=== PATIENT | male | born 1980 | race Caucasian/White ===

== ENCOUNTER 2020-02-29 15:43 | Emergency (ER) | payer BC ==
[2020-02-29] MEDS ORDERED: Sodium Chloride 0.9% 10 ML Syringe FLUSH PRN (15:51)
[2020-02-29 16:44] LABS: PTT,PARTIAL THROMBOPLSTIN TIME 24.3 SEC (24.5-32.8)
[2020-02-29] MEDS: predniSONE 20 MG Tab PO ONE (16:49)
--- NOTE | 2020-02-29 16:49 | EDM.PDOC ---
ED HPI GENERAL MEDICAL PROBLEM - General Chief Complaint: General Stated Complaint: CP, SOB, exposure to sewer system supervisor gas Time Seen by Provider: 02/29/20 16:12 Source of Information: Reports: Patient History Limitations: Reports: No Limitations - History of Present Illness INITIAL COMMENTS - FREE TEXT/NARRATIVE: Patient comes to ER to be evaluated for anterior chest tightness/discomfort and SOB that developed as he was downstairs working on some sewer system supervisor back up issues in home. Exposed to sewer system supervisor gas because of this. Nothing in house is draining through to the city sewer system supervisor system and all sinks/toilets off-gassing. Has history of asthma. Tried to use son's inhaler and it was somewhat helpful. Chest discomfort, described as a crampy pain, was made worse with inspiration and also pushing on chest. Complaint of chest discomfort and SOB essentially resolve by time patient had physical exam in ER. Reports minimal problems with asthma and does not have own inhaler. PMHx significant for morbid obesity and early Type 2 DM. Quit smoking 4 years ago. Minimal ETOH. Some caffeine. No illicit drug use. ROS negative for any recent health changes/illnesses. Was feeling fine until sewer system supervisor issue started. No fevers/chills HEENT negative for ABDI/ear pain/congestion/sore throat/vision change Resp positive for SOB/anterior chest tightness. Negative for cough/sputum production. CV + for the anterior chest discomfort. No diaphoresis/palpitations/dizziness/ syncope/weight changes/edema GI negative for nausea/emesis/bowel changes/abdominal pain/blood in stool negative for acute changes/hematuria/UTI complaints. MS negative for any acute muscles aches/injuries/weakness/limb changes Neuro negative for numbness/tingling/one-sided weakness Skin negative for rash/acute changes Family history negative for mother or father with CAD/UT. He does recall several paternal uncles with UT. - Related Data Allergies Allergy/AdvReac Type Severity Reaction Status Date / Time No Known Allergies Allergy Verified 02/29/20 16:00 Home Meds: Home Meds Albuterol Sulfate [Albuterol Sulfate HFA] 2 appful IH Q4H PRN 06/04/14 [History] metFORMIN HCl [Metformin HCl ER] 1 tab PO DAILY 02/29/20 [History] Past Medical History Respiratory History: Reports: Asthma Endocrine/Metabolic History: Reports: Diabetes, Type II, Obesity/BMI 30+, Other (See Below) (morbidly obese) Social & Family History - Tobacco Use Smoking Status *Q: Former Smoker Tobacco Use Within Last Twelve Months: No Other Tobacco Use Within Last Twelve Months: No - Caffeine Use Caffeine Use: Reports: Soda - Alcohol Use Alcohol Use History: Yes Alcohol Use Frequency: Socially - Recreational Drug Use Recreational Drug Use: No Drug Use in Last 12 Months: No - Living Situation & Occupation Living situation: Reports: Occupation: Employed ED ROS GENERAL - Review of Systems Review Of Systems: Comprehensive ROS is negative, except as noted in HPI. ED EXAM, GENERAL - Physical Exam Exam: See Below Exam Limited By: No Limitations General Appearance: Alert, No Apparent Distress, Obese Eye Exam: Bilateral Eye: EOMI, PERRL Ears: Normal External Exam, Hearing Grossly Normal Nose: No: Nasal Deformity, Nasal Swelling, Nasal Drainage Throat/Mouth: Normal Lips, Normal Voice, No Airway Compromise Head: Atraumatic, Normocephalic Neck: Normal Inspection, Supple, Non-Tender, Full Range of Motion Respiratory/Chest: No Respiratory Distress, Lungs Clear, Normal Breath Sounds, No Accessory Muscle Use, Chest Non-Tender Cardiovascular: Regular Rate, Rhythm, No Edema, No Murmur GI/Abdominal: Normal Bowel Sounds, Soft, Non-Tender, Other (morbidly obese) (Male) Exam: Deferred Rectal (Males) Exam: Deferred Back Exam: No: Muscle Spasm Extremities: Non-Tender, No Pedal Edema, Normal Capillary Refill Neurological: Alert, Oriented, Normal Cognition, Normal Gait, No Motor/Sensory Deficits Psychiatric: Normal Affect, Normal Mood Skin Exam: Warm, Dry, Intact, Normal Color EKG INTERPRETATION EKG Date: 02/29/20 Time: 14:45 Rhythm: NSR Rate (Beats/Min): 85 [place]: Normal P-Wave: Present QRS: Normal ST-T: Other (No obvious ST changes suggestive of acute ischemia/STEMI) QT: Normal Comparison: No Change (very similar in appearance to EKG on file from 2013) Course - Orders/Labs/Meds Orders: Active Orders 24 hr Category Date Time Status Cardiac Monitoring [RC] . DIRECTED Care 02/29/20 15:51 Active EKG Documentation Completion [RC] ASDIRECTED Care 02/29/20 15:45 Active Peripheral IV Care [RC] . DIRECTED Care 02/29/20 15:51 Active Chest 1V Frontal [CR] Stat Exams 02/29/20 15:45 Taken CK W CKMB [CHEM] Stat Lab 02/29/20 15:52 Ordered CMP [COMPREHENSIVE METABOLIC PN,CMP] [CHEM] Stat Lab 02/29/20 15:52 Ordered CORONAVIRUS COVID-19 PCR PHL Stat Lab 02/29/20 15:51 Ordered DD [D-DIMER QUANTITATIVE] [COAG] Stat Lab 02/29/20 15:56 Ordered INR,PT,PROTHROMBIN TIME [COAG] Stat Lab 02/29/20 15:55 Ordered LACTIC ACID [CHEM] Stat Lab 02/29/20 15:56 Ordered MAGNESIUM [CHEM] Stat Lab 02/29/20 15:52 Ordered PRO B-TYPE NATRIUR PEPT,BNPPRO [CHEM] Stat Lab 02/29/20 15:52 Ordered PTT,PARTIAL THROMBOPLSTIN TIME [COAG] Stat Lab 02/29/20 15:55 Ordered TROPONIN I [CHEM] Stat Lab 02/29/20 15:52 Ordered TSH ULTRASENSITIVE [CHEM] Stat Lab 02/29/20 15:52 Ordered Sodium Chloride 0.9% [Saline Flush] Med 02/29/20 15:51 Active 10 ml FLUSH ASDIRECTED PRN Peripheral IV Insertion Adult [OM.PC] Routine Oth 02/29/20 15:51 Ordered Medication Orders Sodium Chloride (Saline Flush) 10 ml FLUSH ASDIRECTED PRN PRN Reason: Keep Vein Open Labs: Laboratory Tests 02/29/20 Range/Units 16:05 WBC 7.6 (4.0-10.2) K/uL RBC 4.89 (4.33-5.41) M/uL Hgb 13.6 (13.1-16.8) g/dL Hct 41.7 (39.0-49.0) % MCV 85.3 (84.0-98.0) fL MCH 27.8 L (28.2-33.3) pg MCHC 32.6 (31.7-36.0) g/dL RDW 14.3 H (11.2-14.1) % Plt Count 258 (150-350) K/uL Neut % (Auto) 73.4 (45.0-80.0) % Lymph % (Auto) 17.4 (10.0-50.0) % [place] % (Auto) 6.8 (2.0-14.0) % Eos % (Auto) 2.1 (0.0-5.0) % Baso % (Auto) 0.3 (0.0-2.0) % Neut # (Auto) 5.58 (1.40-7.00) K/uL Lymph # (Auto) 1.32 (0.50-3.50) K/uL [place] # (Auto) 0.52 (0.00-1.00) K/uL Eos # (Auto) 0.16 (0.00-0.50) K/uL Baso # (Auto) 0.02 (0.00-0.20) K/uL Meds: Medications Generic Name Dose Route Start Last Admin Trade Name Freq PRN Reason Stop Dose Admin Sodium Chloride 10 ml 02/29/20 15:51 Saline Flush FLUSH ASDIRECTED PRN Keep Vein Open - Radiology Interpretation Free Text/Narrative:: No focal consolidation/pneumothorax noted on chest film. - Re-Assessments/Exams Free Text/Narrative Re-Assessment/Exam: 02/29/20 16:59 No focal findings on exam. Patient noted that symptoms had resolved. Cardiac routines ordered. Covid testing added given SOB/chest discomfort complaint. No acute findings on EKG/Chest film Labs overall unremarkable, including CBC/Chem/Troponin/DDimer/ProBNP/TSH. Lactic acid 2.1, which is only 0.1 above normal. No evidence sepsis identified. Suspect reactive airway/asthma component causing patient's complaints due to gas exposure and heavy activity trying to clean up water in basement. Discussed admitting to observation/cardiac monitoring/serial troponin measurements for appropriate cardiac rule out work up and patient declined. He is willing to return tomorrow morning and have troponin and lactic acid redrawn for comparison. Departure - Departure Time of Disposition: 17:04 Disposition: Home, Self-Care 01 Condition: Good Clinical Impression: SOB (shortness of breath), Chest pain, atypical Exacerbation of reactive airway disease Qualifiers: Asthma severity: mild Asthma persistence: intermittent Qualified Code(s): J45.21 - Mild intermittent asthma with (acute) exacerbation - Discharge Information *PRESCRIPTION DRUG MONITORING PROGRAM REVIEWED*: Not Applicable *COPY OF PRESCRIPTION DRUG MONITORING REPORT IN PATIENT ALBERTO: Not Applicable Instructions: Shortness of Breath, Adult, [id number], Nonspecific Chest Pain , Adult, [id number] Referrals: Berenice Lieberman PA-C [Primary Care Provider] - Additional Instructions: Observe closely for changes/new symptoms. Follow up in ER over the weekend if you have sudden worsening problems. Covid test is pending and takes several days to perform. You should stay home and avoid other people while waiting for results. If you continue to have some intermittent issues with SOB but not severe, follow up with your clinic next week. Call hospital if you have questions over the weekend. Use inhaler 1-2 puffs every 4-6 hours as needed for shortness of breath. Take Prednisone 4 tabs daily for three days starting tomorrow. You had your first dose in the ER today. Return to ER/Hospital tomorrow morning for recheck of the labs. - My Orders Last 24 Hours: My Active Orders 02/29/20 15:45 EKG Documentation Completion [RC] ASDIRECTED Chest 1V Frontal [CR] Stat 02/29/20 15:51 Cardiac Monitoring [RC] . DIRECTED Peripheral IV Care [RC] . DIRECTED CORONAVIRUS COVID-19 PCR PHL Stat Sodium Chloride 0.9% [Saline Flush] 10 ml FLUSH ASDIRECTED PRN Peripheral IV Insertion Adult [OM.PC] Routine 02/29/20 15:52 CK W CKMB [CHEM] Stat CMP [COMPREHENSIVE METABOLIC PN,CMP] [CHEM] Stat MAGNESIUM [CHEM] Stat PRO B-TYPE NATRIUR PEPT,BNPPRO [CHEM] Stat TROPONIN I [CHEM] Stat TSH ULTRASENSITIVE [CHEM] Stat 02/29/20 15:55 INR,PT,PROTHROMBIN TIME [COAG] Stat PTT,PARTIAL THROMBOPLSTIN TIME [COAG] Stat 02/29/20 15:56 DD [D-DIMER QUANTITATIVE] [COAG] Stat LACTIC ACID [CHEM] Stat - Assessment/Plan Last 24 Hours: My Active Orders 02/29/20 15:45 EKG Documentation Completion [RC] ASDIRECTED Chest 1V Frontal [CR] Stat 02/29/20 15:51 Cardiac Monitoring [RC] . DIRECTED Peripheral IV Care [RC] . DIRECTED CORONAVIRUS COVID-19 PCR PHL Stat Sodium Chloride 0.9% [Saline Flush] 10 ml FLUSH ASDIRECTED PRN Peripheral IV Insertion Adult [OM.PC] Routine 02/29/20 15:52 CK W CKMB [CHEM] Stat CMP [COMPREHENSIVE METABOLIC PN,CMP] [CHEM] Stat MAGNESIUM [CHEM] Stat PRO B-TYPE NATRIUR PEPT,BNPPRO [CHEM] Stat TROPONIN I [CHEM] Stat TSH ULTRASENSITIVE [CHEM] Stat 02/29/20 15:55 INR,PT,PROTHROMBIN TIME [COAG] Stat PTT,PARTIAL THROMBOPLSTIN TIME [COAG] Stat 02/29/20 15:56 DD [D-DIMER QUANTITATIVE] [COAG] Stat LACTIC ACID [CHEM] Stat
[2020-02-29 16:50] LABS: CHLORIDE,CL 102 mmol/L (98-107); SODIUM,NA 137 mmol/L (136-145)
[2020-02-29 18:01] VITALS: BP 136/76; PULSE 86
== END 2020-02-29 17:18 | disposition home or self-care (01) ==
LOC: LL.ED 15:43
DX: J45.21 Mild intermittent asthma with (acute) exacerbation (principal); E11.9 Type 2 diabetes mellitus without complications; E66.9 Obesity, unspecified; Z87.891 Personal history of nicotine dependence; Z79.84 Long term (current) use of oral hypoglycemic drugs
CPT/HCPCS: 36415; 71045; 80053; 82550; 82553; 83605; 83735; 83880; 84443; 84484; 85025; 85379; 85610; 85730; 93005; 99285-25; J7512; U0002

== ENCOUNTER 2021-02-19 04:00 | Emergency (ER) | payer BC, OTHER ==
[2021-02-19 04:06] VITALS: PULSE 72
[2021-02-19] MEDS ORDERED: Ondansetron 4 MG/2 ML SDV IVPUSH ONE (04:46)
[2021-02-19] MEDS ORDERED: HYDROmorphone 1 MG/ML Syringe IVPUSH ONE (04:48)
[2021-02-19] MEDS ORDERED: Sodium Chloride 0.9% 1,000 ML IV SCH (05:00)
[2021-02-19 05:42] LABS: CHLORIDE,CL 104 mmol/L (98-107); SODIUM,NA 139 mmol/L (136-145)
[2021-02-19 05:48] VITALS: BP 144/89
[2021-02-19] MEDS ORDERED: Ketorolac 15 MG/ML SDV IVPUSH ONE (06:04)
--- NOTE | 2021-02-19 06:09 | EDM.PDOC ---
ED HPI GENERAL MEDICAL PROBLEM - General Chief Complaint: Flank Pain Stated Complaint: RIGHT FLANK PAIN Time Seen by Provider: 02/19/21 04:30 Source of Information: Reports: Patient History Limitations: Reports: No Limitations - History of Present Illness INITIAL COMMENTS - FREE TEXT/NARRATIVE: Pt. presents to ER with complaints of R sided back pain, urinary frequency, nausea, and vomiting. Pt. states that the symptoms woke him from sleep at about 12:30. he states that he vomited once. Denies any discoloration to his urine. Pt. states that he feels like he had to void but his bladder scan performed on admit was only 15 ml. Pt. does have a history of pancreatitis and elevated LFTs on unknown etiology. He was planning to undergo bariatric surgery and possible cholecystectomy (there was perviously some fluid around the gallbladder) and a liver biopsy to determine the etiology of this, but he has put off the surgery. Pt. denies any history of kidney stones. Denies any recent chest pain, shortness of breath, fever, chills, diarrhea, cough, or chest congestion. He does have a history of "borderline diabetes". 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 Right Flank Pain Score (Numeric/FACES): 7 - Related Data Allergies Allergy/AdvReac Type Severity Reaction Status Date / Time house dust Allergy Sneezing Verified 02/19/21 04:02 mold Allergy Chest Verified 02/19/21 04:02 Tightness pollen extracts Allergy Cough Verified 02/19/21 04:02 Home Meds: Home Meds Albuterol Sulfate [Albuterol Sulfate HFA] 2 appful IH Q4H PRN 06/04/14 [History] metFORMIN HCl [Metformin HCl ER] 1 tab PO DAILY 02/29/20 [History] Nitrofurantoin Monohyd/M-Cryst [Macrobid 100 mg Capsule] 100 mg PO BID #20 capsule 02/19/21 [Rx] traMADol [Ultram] 50 mg PO Q6H PRN #10 tab 02/19/21 [Rx] Past Medical History HEENT History: Reports: Allergic Rhinitis Respiratory History: Reports: Asthma Gastrointestinal History: Reports: Pancreatitis Musculoskeletal History: Reports: Back Pain, Chronic Endocrine/Metabolic History: Reports: Diabetes, Type II, Obesity/BMI 30+, Other (See Below) - Infectious Disease History Infectious Disease History: Reports: None - Past Surgical History HEENT Surgical History: Reports: None GI Surgical History: Reports: None Musculoskeletal Surgical History: Reports: None Social & Family History - Tobacco Use Tobacco Use Status *Q: Former Tobacco User Used Tobacco, but Quit: Yes Month/Year Tobacco Last Used: 2015 - Caffeine Use Caffeine Use: Reports: Coffee - Alcohol Use Days Per Week of Alcohol Use: 1 Number of Drinks Per Day: 6 Total Drinks Per Week: 6 Date of Last Drink: 02/15/21 - Recreational Drug Use Recreational Drug Use: No - Living Situation & Occupation Living situation: Reports: Occupation: Employed ED ROS GENERAL - Review of Systems Review Of Systems: See Below Constitutional: Reports: No Symptoms. Denies: Fever, Chills, Malaise, Weakness, Fatigue HEENT: Reports: No Symptoms Respiratory: Reports: No Symptoms Cardiovascular: Reports: No Symptoms Endocrine: Reports: No Symptoms GI/Abdominal: Reports: Abdominal Pain (R sided anterior/lateral ), Nausea, Vomiting. Denies: Black Stool, Bloody Stool, Constipation, Diarrhea, Distension, Hematemesis, Hematochezia, Melena, Mucous in Stool : Reports: Dysuria, Flank Pain, Frequency, Pain Musculoskeletal: Reports: No Symptoms Skin: Reports: No Symptoms Neurological: Reports: No Symptoms Psychiatric: Reports: No Symptoms Hematologic/Lymphatic: Reports: No Symptoms Immunologic: Reports: No Symptoms ED EXAM, GENERAL - Physical Exam Exam: See Below Exam Limited By: No Limitations General Appearance: Alert, WD/WN, No Apparent Distress Head: Atraumatic, Normocephalic Neck: Normal Inspection, Supple, Non-Tender, Full Range of Motion Respiratory/Chest: No Respiratory Distress, Lungs Clear, Normal Breath Sounds, No Accessory Muscle Use, Chest Non-Tender Cardiovascular: Normal Peripheral Pulses, Regular Rate, Rhythm, No Edema, No Gallop, No JVD, No Murmur Peripheral Pulses: 4+: Radial (L) GI/Abdominal: Soft, Tender (Tender to R side of abdomen/R flank, no increased discomfort with palpation.) (Male) Exam: Deferred Rectal (Males) Exam: Deferred Back Exam: CVA Tenderness (R) Psychiatric: Normal Affect, Normal Mood Skin Exam: Warm, Dry, Intact, Normal Color, No Rash Lymphatic: No Adenopathy Course - Vital Signs Last Recorded V/S: Last Vital Signs Temp 36.5 C 02/19/21 05:48 Pulse 72 02/19/21 05:48 Resp 16 02/19/21 05:48 BP 144/89 H 02/19/21 05:48 Pulse Ox 95 02/19/21 05:48 - Orders/Labs/Meds Orders: Active Orders 24 hr Category Date Time Status Abdomen Pelvis wo Cont [CT] Stat Exams 02/19/21 05:51 Taken CULTURE URINE [RM] Routine Lab 02/19/21 04:20 Received Sodium Chloride 0.9% [Normal Saline] 1,000 ml Med 02/19/21 05:00 Active IV ASDIRECTED Medication Orders Sodium Chloride (Normal Saline) 1,000 mls @ 250 mls/hr IV ASDIRECTED ELISE Last Admin: 02/19/21 04:56 Dose: 250 mls/hr Documented by: JOSE DANIEL Labs: Laboratory Tests 02/19/21 02/19/21 02/19/21 Range/Units 04:20 05:02 05:02 WBC 7.4 (4.0-10.2) K/uL RBC 4.97 (4.33-5.41) M/uL Hgb 13.8 (13.1-16.8) g/dL Hct 41.7 (39.0-49.0) % MCV 83.9 L (84.0-98.0) fL MCH 27.8 L (28.2-33.3) pg MCHC 33.1 (31.7-36.0) g/dL RDW 14.2 H (11.2-14.1) % Plt Count 292 (150-350) K/uL Neut % (Auto) 67.9 (45.0-80.0) % Lymph % (Auto) 22.8 (10.0-50.0) % [place] % (Auto) 6.3 (2.0-14.0) % Eos % (Auto) 2.6 (0.0-5.0) % Baso % (Auto) 0.4 (0.0-2.0) % Neut # (Auto) 5.00 (1.40-7.00) K/uL Lymph # (Auto) 1.68 (0.50-3.50) K/uL [place] # (Auto) 0.46 (0.00-1.00) K/uL Eos # (Auto) 0.19 (0.00-0.50) K/uL Baso # (Auto) 0.03 (0.00-0.20) K/uL PT 9.7 (9.5-12.0) SEC INR 1.0 Sodium (136-145) mmol/L Potassium (3.5-5.1) mmol/L Chloride (98-107) mmol/L Carbon Dioxide (21.0-32.0) mmol/L BUN (7-18) mg/dL Creatinine (0.51-1.17) mg/dL Est Cr Clr Drug Dosing Estimated GFR (MDRD) mL/min Glucose (70-99) mg/dL Calcium (8.5-10.1) mg/dL Total Bilirubin (0.2-1.0) mg/dL AST (15-37) U/L ALT (12-78) U/L Alkaline Phosphatase (46-116) IU/L C-Reactive Protein (<=0.9) mg/dL Total Protein (6.4-8.2) g/dL Albumin (3.4-5.0) g/dL Amylase (25-115) U/L Lipase (73-393) U/L Specimen Type Urincc Urine Color [place] Urine Appearance Cloudy Urine pH 5.5 (5.0-9.0) Ur Specific [place] >= 1.030 (1.005-1.030) Urine Protein 100 H (NEGATIVE) mg/dL Urine Glucose (UA) Negative (NEGATIVE) mg/dL Urine Ketones Negative (NEGATIVE) mg/dL Urine Occult Blood Large H (NEGATIVE) Urine Nitrite Negative (NEGATIVE) Urine Bilirubin Negative (NEGATIVE) Urine Urobilinogen 0.2 (0.2-1.0) E.U./dL Ur Leukocyte Esterase Negative (NEGATIVE) Urine RBC 75-100 H /HPF Urine WBC Not seen /HPF Ur Epithelial Cells Occasional /LPF Urine Bacteria Few (NONE TO FEW) /HPF 02/19/21 Range/Units 05:02 WBC (4.0-10.2) K/uL RBC (4.33-5.41) M/uL Hgb (13.1-16.8) g/dL Hct (39.0-49.0) % MCV (84.0-98.0) fL MCH (28.2-33.3) pg MCHC (31.7-36.0) g/dL RDW (11.2-14.1) % Plt Count (150-350) K/uL Neut % (Auto) (45.0-80.0) % Lymph % (Auto) (10.0-50.0) % [place] % (Auto) (2.0-14.0) % Eos % (Auto) (0.0-5.0) % Baso % (Auto) (0.0-2.0) % Neut # (Auto) (1.40-7.00) K/uL Lymph # (Auto) (0.50-3.50) K/uL [place] # (Auto) (0.00-1.00) K/uL Eos # (Auto) (0.00-0.50) K/uL Baso # (Auto) (0.00-0.20) K/uL PT (9.5-12.0) SEC INR Sodium 139 (136-145) mmol/L Potassium 4.2 (3.5-5.1) mmol/L Chloride 104 (98-107) mmol/L Carbon Dioxide 23.3 (21.0-32.0) mmol/L BUN 20 H (7-18) mg/dL Creatinine 0.91 (0.51-1.17) mg/dL Est Cr Clr Drug Dosing TNP Estimated GFR (MDRD) > 60 mL/min Glucose 151 H (70-99) mg/dL Calcium 8.2 L (8.5-10.1) mg/dL Total Bilirubin 0.5 (0.2-1.0) mg/dL AST 20 (15-37) U/L ALT 43 (12-78) U/L Alkaline Phosphatase 65 (46-116) IU/L C-Reactive Protein 1.1 H (<=0.9) mg/dL Total Protein 7.6 (6.4-8.2) g/dL Albumin 3.7 (3.4-5.0) g/dL Amylase 61 (25-115) U/L Lipase 87 (73-393) U/L Specimen Type Urine Color Urine Appearance Urine pH (5.0-9.0) Ur Specific [place] (1.005-1.030) Urine Protein (NEGATIVE) mg/dL Urine Glucose (UA) (NEGATIVE) mg/dL Urine Ketones (NEGATIVE) mg/dL Urine Occult Blood (NEGATIVE) Urine Nitrite (NEGATIVE) Urine Bilirubin (NEGATIVE) Urine Urobilinogen (0.2-1.0) E.U./dL Ur Leukocyte Esterase (NEGATIVE) Urine RBC /HPF Urine WBC /HPF Ur Epithelial Cells /LPF Urine Bacteria (NONE TO FEW) /HPF Meds: Medications Generic Name Dose Route Start Last Admin Trade Name Freq PRN Reason Stop Dose Admin Sodium Chloride 1,000 mls @ 250 mls/hr 02/19/21 05:00 02/19/21 04:56 Normal Saline IV 250 mls/hr ASDIRECTED ELISE Administration Discontinued Medications Generic Name Dose Route Start Last Admin Trade Name Freq PRN Reason Stop Dose Admin Ceftriaxone Sodium 2 gm 02/19/21 06:45 02/19/21 07:00 Ceftriaxone 2 Gm Vial IVPUSH 02/19/21 06:46 2 gm ONETIME ONE Administration Hydromorphone HCl 1 mg 02/19/21 04:48 02/19/21 04:53 Hydromorphone 1 Mg/Ml Syringe IVPUSH 02/19/21 04:49 1 mg ONETIME ONE Administration Ketorolac Tromethamine 15 mg 02/19/21 06:04 02/19/21 06:15 Ketorolac 15 Mg/Ml Sdv IVPUSH 02/19/21 06:05 15 mg ONETIME ONE Administration Ondansetron HCl 4 mg 02/19/21 04:46 02/19/21 04:53 Ondansetron 4 Mg/2 Ml Sdv IVPUSH 02/19/21 04:47 4 mg ONETIME ONE Administration Tamsulosin HCl 0.4 mg 02/19/21 06:44 02/19/21 07:00 Tamsulosin 0.4 Mg Cap.Er PO 02/19/21 06:45 0.4 mg ONETIME ONE Administration - Re-Assessments/Exams Free Text/Narrative Re-Assessment/Exam: 02/19/21 06:13 Pt. was given a liter of NS, zofran 4mg IV, dilaudid 1mg IV, and toradol 4 mg IV. Pt. reported significant improvement in discomfort. Pt. is currently being sent for CT scan for flank pain/hematuria. Departure - Departure Time of Disposition: 06:00 Disposition: Home, Self-Care 01 Clinical Impression: UTI, Urinary tract infectious disease, Asthma, Hyperglycemia Urolithiasis Qualifiers: Urinary calculus location: lower urinary tract Qualified Code(s): N21.9 - Calculus of lower urinary tract, unspecified - Discharge Information Prescriptions: Nitrofurantoin Monohyd/M-Cryst [Macrobid 100 mg Capsule] 100 mg PO BID #20 capsule traMADol [Ultram] 50 mg PO Q6H PRN #10 tab PRN Reason: Pain (Severe 7-10) Instructions: Kidney Stones, [id number], Urinary Tract Infection, Adult, [id number] Referrals: Berenice Lieberman PA-C [Primary Care Provider] - Forms: ED Department Discharge Additional Instructions: 1. Followup with your regular provider tomorrow as directed with recommended repeat CBC, basic metabolic panel, and lactic acid level. Bring these discharge instructions with you to that visit. 2. Tylenol 650 mg by mouth every 4 hours and/or OTC ibuprofen 2-3 tabs by mouth every 6 hours with food as directed./needed. You may stagger these medications for 48-72 hours only, which essentially means that you are receiving a pain medication about every 2 hours. Next dose of ibuprofen in 6 hours as needed secondary to medications given in the emergency room 3. [place] diet including encouragement of oral fluids such as sports drinks, etc. for 24-48 hours as directed. Advance to regular diet as tolerated thereafter. 4. Work excuse- See Form 5. Initiate your Flomax starting tomorrow morning with this medication to be discontinued after you have passed your stone. 6. Strain all urine and bring stone to your regular provider or this facility as directed for further stone analysis. 7. Work excuse- See Form 8. Use Ultram with discretion as discussed with nausea, sedation, confusion, dependency, etc. precautions with this medication. This medication should be used for extreme pain only and if the above Tylenol or ibuprofen are ineffective. 9. Immediately after this visit verify that your cellular telephone's voicemail has been activated and is empty. Also verify that your home telephone's answering machine is operating properly and has space to receive messages. Note that it is sometimes necessary for us to be able to contact you at a later date to discuss your medical care. 10. Please remember that we are ALWAYS here for you and want to answer any questions you may have. Feel free to call the hospital any time and we call you back MARYAM. Sepsis Event Note (ED) - Evaluation Sepsis Screening Result: No Definite Risk - Focused Exam Vital Signs: Vital Signs Temp Pulse Resp BP Pulse Ox 02/19/21 05:48 36.5 C 72 16 144/89 H 95 02/19/21 04:05 35.9 C L 72 14 146/81 H 96 - My Orders Last 24 Hours: My Active Orders 02/19/21 05:00 Sodium Chloride 0.9% [Normal Saline] 1,000 ml IV ASDIRECTED 02/19/21 05:51 Abdomen Pelvis wo Cont [CT] Stat - Assessment/Plan Last 24 Hours: My Active Orders 02/19/21 05:00 Sodium Chloride 0.9% [Normal Saline] 1,000 ml IV ASDIRECTED 02/19/21 05:51 Abdomen Pelvis wo Cont [CT] Stat Plan: Pt. care of this patient was assumed at [address] Valdivia. Please refer to his note regarding the final disposition of this patient.
[2021-02-19] MEDS ORDERED: Tamsulosin 0.4 MG Cap.ER PO ONE (06:44)
[2021-02-19] MEDS ORDERED: cefTRIAXone 2 GM Vial IVPUSH ONE (06:45)
--- NOTE | 2021-02-19 06:53 | EDM.PDOC ---
ED HPI GENERAL MEDICAL PROBLEM - General Chief Complaint: Flank Pain Stated Complaint: RIGHT FLANK PAIN Time Seen by Provider: 02/19/21 06:05 Source of Information: Reports: Patient History Limitations: Reports: No Limitations - History of Present Illness INITIAL COMMENTS - FREE TEXT/NARRATIVE: Pt. presents to ER with complaints of R sided back pain, urinary frequency, nausea, and vomiting. Pt. states that the symptoms woke him from sleep at about 12:30. he states that he vomited once. Denies any discoloration to his urine. Pt. states that he feels like he had to void but his bladder scan performed on admit was only 15 ml. Pt. does have a history of pancreatitis and elevated LFTs on unknown etiology. He was planning to undergo bariatric surgery and possible cholecystectomy (there was perviously some fluid around the gallbladder) and a liver biopsy to determine the etiology of this, but he has put off the surgery. Pt. denies any history of kidney stones. Denies any recent chest pain, shortness of breath, fever, chills, diarrhea, cough, or chest congestion. He does have a history of "borderline diabetes". Onset: Today Onset Date: 02/19/21 Location: Reports: Abdomen, Back Quality: Reports: Ache, Sharp Treatments [employer]: Reports: NSAIDS Right Flank Pain Score (Numeric/FACES): 7 - Related Data Allergies Allergy/AdvReac Type Severity Reaction Status Date / Time house dust Allergy Sneezing Verified 02/19/21 04:02 mold Allergy Chest Verified 02/19/21 04:02 Tightness pollen extracts Allergy Cough Verified 02/19/21 04:02 Home Meds: Home Meds Albuterol Sulfate [Albuterol Sulfate HFA] 2 appful IH Q4H PRN 06/04/14 [History] metFORMIN HCl [Metformin HCl ER] 1 tab PO DAILY 02/29/20 [History] Nitrofurantoin Monohyd/M-Cryst [Macrobid 100 mg Capsule] 100 mg PO BID #20 capsule 02/19/21 [Rx] traMADol [Ultram] 50 mg PO Q6H PRN #10 tab 02/19/21 [Rx] Past Medical History HEENT History: Reports: Allergic Rhinitis Respiratory History: Reports: Asthma Gastrointestinal History: Reports: Pancreatitis Musculoskeletal History: Reports: Back Pain, Chronic Endocrine/Metabolic History: Reports: Diabetes, Type II, Obesity/BMI 30+, Other (See Below) - Infectious Disease History Infectious Disease History: Reports: None - Past Surgical History HEENT Surgical History: Reports: None GI Surgical History: Reports: None Musculoskeletal Surgical History: Reports: None Social & Family History - Tobacco Use Tobacco Use Status *Q: Former Tobacco User Used Tobacco, but Quit: Yes Month/Year Tobacco Last Used: 2015 - Caffeine Use Caffeine Use: Reports: Coffee - Alcohol Use Days Per Week of Alcohol Use: 1 Number of Drinks Per Day: 6 Total Drinks Per Week: 6 Date of Last Drink: 02/15/21 - Recreational Drug Use Recreational Drug Use: No - Living Situation & Occupation Living situation: Reports: Occupation: Employed ED ROS GENERAL - Review of Systems Review Of Systems: Comprehensive ROS is negative, except as noted in HPI. ED EXAM, GENERAL - Physical Exam Exam: See Below Free Text/Narrative:: Pt. presents to ER with complaints of R sided back pain, urinary frequency, nausea, and vomiting. Pt. states that the symptoms woke him from sleep at about 12:30. he states that he vomited once. Denies any discoloration to his urine. Pt. states that he feels like he had to void but his bladder scan performed on admit was only 15 ml. Pt. does have a history of pancreatitis and elevated LFTs on unknown etiology. He was planning to undergo bariatric surgery and possible cholecystectomy (there was perviously some fluid around the gallbladder) and a liver biopsy to determine the etiology of this, but he has put off the surgery. Pt. denies any history of kidney stones. Denies any recent chest pain, shortness of breath, fever, chills, diarrhea, cough, or chest congestion. He does have a history of "borderline diabetes". Exam Limited By: No Limitations General Appearance: Alert, WD/WN, No Apparent Distress Head: Atraumatic, Normocephalic Neck: Normal Inspection, Supple, Non-Tender, Full Range of Motion Respiratory/Chest: No Respiratory Distress, Lungs Clear, Normal Breath Sounds, No Accessory Muscle Use, Chest Non-Tender Cardiovascular: Normal Peripheral Pulses, Regular Rate, Rhythm, No Edema, No Gallop, No JVD, No Murmur Peripheral Pulses: 4+: Radial (L) GI/Abdominal: Soft, Tender (Tender to R side of abdomen/R flank, no increased discomfort with palpation.) Back Exam: CVA Tenderness (R) Psychiatric: Normal Affect, Normal Mood Skin Exam: Warm, Dry, Intact, Normal Color, No Rash Lymphatic: No Adenopathy Course - Vital Signs Last Recorded V/S: Last Vital Signs Temp 36.5 C 02/19/21 05:48 Pulse 72 02/19/21 05:48 Resp 16 02/19/21 05:48 BP 144/89 H 02/19/21 05:48 Pulse Ox 95 02/19/21 05:48 Vital Signs - 24 hr 02/19/21 02/19/21 04:05 05:48 Temperature [ 35.9 C L 36.5 C Temporal] Pulse, 72 72 Peripheral [ Left Pulse Oximetry] Respiratory 14 16 Rate Blood Pressure 146/81 H 144/89 H [Left Upper Arm ] O2 Sat by Pulse 96 95 Oximetry - Orders/Labs/Meds Orders: Active Orders 24 hr Category Date Time Status Abdomen Pelvis wo Cont [CT] Stat Exams 02/19/21 05:51 Taken CULTURE URINE [RM] Routine Lab 02/19/21 04:20 Received Labs: Laboratory Tests 02/19/21 02/19/21 02/19/21 Range/Units 04:20 05:02 05:02 WBC 7.4 (4.0-10.2) K/uL RBC 4.97 (4.33-5.41) M/uL Hgb 13.8 (13.1-16.8) g/dL Hct 41.7 (39.0-49.0) % MCV 83.9 L (84.0-98.0) fL MCH 27.8 L (28.2-33.3) pg MCHC 33.1 (31.7-36.0) g/dL RDW 14.2 H (11.2-14.1) % Plt Count 292 (150-350) K/uL Neut % (Auto) 67.9 (45.0-80.0) % Lymph % (Auto) 22.8 (10.0-50.0) % Bru[place] % (Auto) 6.3 (2.0-14.0) % Eos % (Auto) 2.6 (0.0-5.0) % Baso % (Auto) 0.4 (0.0-2.0) % Neut # (Auto) 5.00 (1.40-7.00) K/uL Lymph # (Auto) 1.68 (0.50-3.50) K/uL Brule # (Auto) 0.46 (0.00-1.00) K/uL Eos # (Auto) 0.19 (0.00-0.50) K/uL Baso # (Auto) 0.03 (0.00-0.20) K/uL PT 9.7 (9.5-12.0) SEC INR 1.0 Sodium (136-145) mmol/L Potassium (3.5-5.1) mmol/L Chloride (98-107) mmol/L Carbon Dioxide (21.0-32.0) mmol/L BUN (7-18) mg/dL Creatinine (0.51-1.17) mg/dL Est Cr Clr Drug Dosing Estimated GFR (MDRD) mL/min Glucose (70-99) mg/dL Calcium (8.5-10.1) mg/dL Total Bilirubin (0.2-1.0) mg/dL AST (15-37) U/L ALT (12-78) U/L Alkaline Phosphatase (46-116) IU/L C-Reactive Protein (<=0.9) mg/dL Total Protein (6.4-8.2) g/dL Albumin (3.4-5.0) g/dL Amylase (25-115) U/L Lipase (73-393) U/L Specimen Type Urincc Urine Color [place] Urine Appearance Cloudy Urine pH 5.5 (5.0-9.0) Ur Specific [place] >= 1.030 (1.005-1.030) Urine Protein 100 H (NEGATIVE) mg/dL Urine Glucose (UA) Negative (NEGATIVE) mg/dL Urine Ketones Negative (NEGATIVE) mg/dL Urine Occult Blood Large H (NEGATIVE) Urine Nitrite Negative (NEGATIVE) Urine Bilirubin Negative (NEGATIVE) Urine Urobilinogen 0.2 (0.2-1.0) E.U./dL Ur Leukocyte Esterase Negative (NEGATIVE) Urine RBC 75-100 H /HPF Urine WBC Not seen /HPF Ur Epithelial Cells Occasional /LPF Urine Bacteria Few (NONE TO FEW) /HPF 02/19/21 Range/Units 05:02 WBC (4.0-10.2) K/uL RBC (4.33-5.41) M/uL Hgb (13.1-16.8) g/dL Hct (39.0-49.0) % MCV (84.0-98.0) fL MCH (28.2-33.3) pg MCHC (31.7-36.0) g/dL RDW (11.2-14.1) % Plt Count (150-350) K/uL Neut % (Auto) (45.0-80.0) % Lymph % (Auto) (10.0-50.0) % Brule % (Auto) (2.0-14.0) % Eos % (Auto) (0.0-5.0) % Baso % (Auto) (0.0-2.0) % Neut # (Auto) (1.40-7.00) K/uL Lymph # (Auto) (0.50-3.50) K/uL Brule # (Auto) (0.00-1.00) K/uL Eos # (Auto) (0.00-0.50) K/uL Baso # (Auto) (0.00-0.20) K/uL PT (9.5-12.0) SEC INR Sodium 139 (136-145) mmol/L Potassium 4.2 (3.5-5.1) mmol/L Chloride 104 (98-107) mmol/L Carbon Dioxide 23.3 (21.0-32.0) mmol/L BUN 20 H (7-18) mg/dL Creatinine 0.91 (0.51-1.17) mg/dL Est Cr Clr Drug Dosing TNP Estimated GFR (MDRD) > 60 mL/min Glucose 151 H (70-99) mg/dL Calcium 8.2 L (8.5-10.1) mg/dL Total Bilirubin 0.5 (0.2-1.0) mg/dL AST 20 (15-37) U/L ALT 43 (12-78) U/L Alkaline Phosphatase 65 (46-116) IU/L C-Reactive Protein 1.1 H (<=0.9) mg/dL Total Protein 7.6 (6.4-8.2) g/dL Albumin 3.7 (3.4-5.0) g/dL Amylase 61 (25-115) U/L Lipase 87 (73-393) U/L Specimen Type Urine Color Urine Appearance Urine pH (5.0-9.0) Ur Specific [place] (1.005-1.030) Urine Protein (NEGATIVE) mg/dL Urine Glucose (UA) (NEGATIVE) mg/dL Urine Ketones (NEGATIVE) mg/dL Urine Occult Blood (NEGATIVE) Urine Nitrite (NEGATIVE) Urine Bilirubin (NEGATIVE) Urine Urobilinogen (0.2-1.0) E.U./dL Ur Leukocyte Esterase (NEGATIVE) Urine RBC /HPF Urine WBC /HPF Ur Epithelial Cells /LPF Urine Bacteria (NONE TO FEW) /HPF Urine specimen was set up for culture and sensitivity secondary to indication of possible nephritis by CT scan. Meds: Medications Discontinued Medications Generic Name Dose Route Start Last Admin Trade Name Freq PRN Reason Stop Dose Admin Ceftriaxone Sodium 2 gm 02/19/21 06:45 02/19/21 07:00 Ceftriaxone 2 Gm Vial IVPUSH 02/19/21 06:46 2 gm ONETIME ONE Administration Hydromorphone HCl 1 mg 02/19/21 04:48 02/19/21 04:53 Hydromorphone 1 Mg/Ml Syringe IVPUSH 02/19/21 04:49 1 mg ONETIME ONE Administration Sodium Chloride 1,000 mls @ 250 mls/hr 02/19/21 05:00 02/19/21 04:56 Normal Saline IV 250 mls/hr ASDIRECTED ELISE Administration Ketorolac Tromethamine 15 mg 02/19/21 06:04 02/19/21 06:15 Ketorolac 15 Mg/Ml Sdv IVPUSH 02/19/21 06:05 15 mg ONETIME ONE Administration Ondansetron HCl 4 mg 02/19/21 04:46 02/19/21 04:53 Ondansetron 4 Mg/2 Ml Sdv IVPUSH 02/19/21 04:47 4 mg ONETIME ONE Administration Tamsulosin HCl 0.4 mg 02/19/21 06:44 02/19/21 07:00 Tamsulosin 0.4 Mg Cap.Er PO 02/19/21 06:45 0.4 mg ONETIME ONE Administration - Radiology Interpretation Free Text/Narrative:: Telephone consultation at 6:31 AM with the radiology department at [facility]. Preliminary verbal report of noncontrast CT scan of the abdomen pelvis using stone protocol was positive for 2 mm distal calcification at the UV J with no hydronephrosis, however possibility of some right renal nephritis. Departure - Departure Time of Disposition: 07:41 Disposition: Home, Self-Care 01 Condition: Good Clinical Impression: UTI, Urinary tract infectious disease, Asthma, Hyperglycemia, Hypocalcemia Urolithiasis Qualifiers: Urinary calculus location: lower urinary tract Qualified Code(s): N21.9 - Calculus of lower urinary tract, unspecified - Discharge Information *PRESCRIPTION DRUG MONITORING PROGRAM REVIEWED*: No *COPY OF PRESCRIPTION DRUG MONITORING REPORT IN PATIENT ALBERTO: No Prescriptions: Nitrofurantoin Monohyd/M-Cryst [Macrobid 100 mg Capsule] 100 mg PO BID #20 capsule traMADol [Ultram] 50 mg PO Q6H PRN #10 tab PRN Reason: Pain (Severe 7-10) Instructions: Kidney Stones, [id number], Urinary Tract Infection, Adult, [id number] Referrals: Berenice Lieberman PA-C [Primary Care Provider] - Forms: ED Department Discharge Additional Instructions: 1. Followup with your regular provider tomorrow as directed with recommended repeat CBC, basic metabolic panel, and lactic acid level. Bring these discharge instructions with you to that visit. 2. Tylenol 650 mg by mouth every 4 hours and/or OTC ibuprofen 2-3 tabs by mouth every 6 hours with food as directed./needed. You may stagger these medications for 48-72 hours only, which essentially means that you are receiving a pain medication about every 2 hours. Next dose of ibuprofen in 6 hours as needed secondary to medications given in the emergency room 3. [place] diet including encouragement of oral fluids such as sports drinks, etc. for 24-48 hours as directed. Advance to regular diet as tolerated thereafter. 4. Work excuse- See Form 5. Initiate your Flomax starting tomorrow morning with this medication to be discontinued after you have passed your stone. 6. Strain all urine and bring stone to your regular provider or this facility as directed for further stone analysis. 7. Work excuse- See Form 8. Use Ultram with discretion as discussed with nausea, sedation, confusion, dependency, etc. precautions with this medication. This medication should be used for extreme pain only and if the above Tylenol or ibuprofen are ineffecti ve. 9. Immediately after this visit verify that your cellular telephone's voicemail has been activated and is empty. Also verify that your home telephone's answering machine is operating properly and has space to receive messages. Note that it is sometimes necessary for us to be able to contact you at a later date to discuss your medical care. 10. Please remember that we are ALWAYS here for you and want to answer any questions you may have. Feel free to call the hospital any time and we call you back MARYAM. Sepsis Event Note (ED) - Evaluation Sepsis Screening Result: No Definite Risk - Focused Exam Vital Signs: Vital Signs Temp Pulse Resp BP Pulse Ox 02/19/21 05:48 36.5 C 72 16 144/89 H 95 02/19/21 04:05 35.9 C L 72 14 146/81 H 96 - Problem List & Annotations (1) Urolithiasis SNOMED Code(s): 73962974 Code(s): N20.9 - URINARY CALCULUS, UNSPECIFIED Status: Acute Priority: High Onset Date: 02/19/21 Annotation/Comment:: Note positive CT scan of the abdomen pelvis indicating small distal right-sided urolithiasis, which should easily pass spontaneously. IV Dilaudid was given in the emergency room. Otherwise symptomatic relief as per discharge instructions, including encouragement of oral fluids, Ultram with discretion, etc. [place] work excuse was provided. Sedation precautions, etc. were given. Close follow-up by regular provider with consideration of repeat renal ultrasound in 1 week especially, if the stone has not been passed. Urine specimen was set up for culture and sensitivity as above secondary to evidence of possible nephritis by CT scan. Flomax therapy was initiated in the emergency room with this to be discontinued once his stone is passed. The patient was provided supplies to collect the stone for further analysis. Neighbor did drive the patient home. Qualifiers: Urinary calculus location: lower urinary tract Qualified Code(s): N21.9 - Calculus of lower urinary tract, unspecified; N21 - Calculus of lower urinary tract (2) UTI, Urinary tract infectious disease SNOMED Code(s): 75807706 Code(s): N39.0 - URINARY TRACT INFECTION, SITE NOT SPECIFIED Status: Acute Priority: High Onset Date: 02/19/21 Annotation/Comment:: Note no fever, leukocytosis, etc.l. CT scan indicates possible right-sided nephritis, however. Rocephin 2 g IV was given in the emergency room prior to patient's discharge with initiation of Macrobid later today. Close follow-up by regular provider as per discharge instructions. (3) Asthma SNOMED Code(s): 923331408 Code(s): J45.909 - UNSPECIFIED ASTHMA, UNCOMPLICATED Status: Chronic Priority: Medium Annotation/Comment:: No recent fever or bronchitic type symptoms. (4) Hyperglycemia SNOMED Code(s): 96370899 Code(s): R73.9 - HYPERGLYCEMIA, UNSPECIFIED Status: Chronic Priority: Hig h Onset Date: 06/05/14 Annotation/Comment:: Note current Metformin therapy and obesity. Continue to observe closely by regular provider. Weight loss moderation is advisable. (5) Hypocalcemia SNOMED Code(s): 1415582 Code(s): E83.51 - HYPOCALCEMIA Status: Acute Priority: Medium Onset Date: 02/19/21 Annotation/Comment:: Observe for now - Problem List Review Problem List Initiated/Reviewed/Updated: Yes - My Orders Last 24 Hours: My Active Orders 02/19/21 04:20 CULTURE URINE [RM] Routine - Assessment/Plan Last 24 Hours: My Active Orders 02/19/21 04:20 CULTURE URINE [RM] Routine Assessment:: As above Plan: As above. Extensive precautions were given to the patient, who is in agreement with the treatment plan. See Patient Instructions for further treatment and plan.
== END 2021-02-19 07:41 | disposition home or self-care (01) ==
LOC: LL.ED 04:00
DX: N21.9 Calculus of lower urinary tract, unspecified (principal); N39.0 Urinary tract infection, site not specified; J45.909 Unspecified asthma, uncomplicated; E11.65 Type 2 diabetes mellitus with hyperglycemia; E66.9 Obesity, unspecified; Z91.09 Other allergy status, other than to drugs and biological substances; Z68.30 Body mass index [BMI] 30.0-30.9, adult; Z91.048 Other nonmedicinal substance allergy status; Z79.84 Long term (current) use of oral hypoglycemic drugs
CPT/HCPCS: 36415; 74176; 80053; 81001; 82150; 83690; 85025; 85610; 86140; 87086; 96374; 96375; 99284; 99284-25; A9270-GY; J0696; J1170; J1885; J2405; J7030